=== PATIENT | female | born 1970 | race Caucasian/White ===

== ENCOUNTER → 2017-09-24 | Emergency (ER) | payer OTHER ==
[~2017-09-24] VITALS: Ht 165.1 cm; Wt 68.0 kg
[~2017-09-24] MED LIST: TAMIFLU45 MG; TUSSI PRES-B L120 M1 PO
== END | disposition home or self-care (01) ==
LOC: ER 15:39
DX: B34.9 Viral infection, unspecified (principal)

== ENCOUNTER 2021-06-05 12:16 | Emergency (ER) | payer OTHER ==
[~2021-06-05] VITALS: Ht 162.6 cm; Wt 73.9 kg
[2021-06-05] MEDS ORDERED: TIROSINT13 MCG (12:43)
== END 2021-06-05 20:51 | disposition home or self-care (01) ==
LOC: ER 12:16
DX: R10.32 Left lower quadrant pain (principal); E03.8 Other specified hypothyroidism; Z03.818 Encounter for observation for suspected exposure to other biological agents ruled out

== ENCOUNTER 2022-04-15 07:48 | Emergency (ER) | payer OTHER ==
[~2022-04-15] VITALS: Ht 162.6 cm; Wt 73.9 kg
[~2022-04-15 07:48] MED LIST changes: +TIROSINT13 MCG
[2022-04-15] MEDS ORDERED: SYNTHROID112 MCG PO (08:18)
== END 2022-04-15 09:41 | disposition home or self-care (01) ==
LOC: ER 07:48
DX: M25.519 Pain in unspecified shoulder (principal)

== ENCOUNTER 2023-05-17 14:38 | Emergency (ER) | payer OTHER ==
[~2023-05-17] VITALS: Ht 162.6 cm; Wt 73.9 kg
[~2023-05-17 14:38] MED LIST changes: +SYNTHROID112 MCG PO
[2023-05-17 17:46] LABS: HEMATOCRIT 39.8 % (36.0-45.00); HEMOGLOBIN 13.3 g/dL (12.0-15.00); MEAN CELL VOLUME 84.7 fL (80.00-100.00); MEAN CORPUSCULAR HEMOGLOBIN 28.3 pg (27.00-32.0); MEAN CORPUSCULAR HGB CONC 33.4 g/dl (32.0-36.0); PLATELET COUNT 187 K/uL (150-450); RED CELL DISTRIBUTION WIDTH 13.6 % (11.5-14.5)
== END 2023-05-17 20:24 | disposition home or self-care (01) ==
LOC: ER 14:38
PROVIDERS: General Practice
DX: R51.9 Headache, unspecified (principal); R42 Dizziness and giddiness

== ENCOUNTER 2024-10-31 15:50 | Emergency (ER) | payer OTHER ==
[~2024-10-31] VITALS: Ht 165.1 cm; Wt 69.4 kg
[2024-10-31 16:30] VITALS: BP 113/76; O2SAT 99
[2024-10-31] MEDS ORDERED: 0.9 % SODIUM CHLORIDE 1,000 ML IV STA (20:06)
[2024-10-31] MEDS ORDERED: KETOROLAC TROMETHAMINE 30 MG VIAL IV STA (20:06)
[2024-10-31] MEDS ORDERED: MORPHINE SULFATE 4 MG/ML VIAL IV STA (20:07)
[2024-10-31] MEDS ORDERED: KETOROLAC TROMETHAMINE 30 MG VIAL ONE (20:50)
[2024-10-31 20:56] LABS: HEMOGLOBIN 12.9 g/dL (12.0-15.00); MEAN CORPUSCULAR HEMOGLOBIN 28.9 pg (27.00-32.0); PLATELET COUNT 175 K/uL (150-450); RED BLOOD COUNT 4.47 M/uL (4.00-6.00); RED CELL DISTRIBUTION WIDTH 12.8 % (11.5-14.5)
[2024-10-31 21:20] LABS: INR 0.98; PROTHROMBIN TIME 10.7 SECONDS (9.0-11.5)
[2024-10-31 21:20] LABS: PH,URINE 7.5 (5.0-8.0); URINE APPEARANCE Clear; URINE BILIRRUBIN Negative (NEGATIVE); URINE BLOOD Negative; URINE COLOR Yellow; URINE GLUCOSE Negative (NEGATIVE); URINE KETONE Negative (NEGATIVE); URINE LEUKOCYTE Negative; URINE NITRATE Negative; URINE PROTEIN Negative (NEGATIVE); URINE UROBILINOGEN 0.2 E.U./dl
[2024-10-31 21:31] LABS: URINE EPITHELIAL CELLS 1.4 uL (0.0-38.8); URINE RBC 9.8 uL (0.0-20.8)
[2024-10-31 21:35] LABS: ALBUMIN 3.6 gm/dL (3.4-5.0); BILIRUBIN TOTAL 0.39 mg/dL (0.3-1.2); CREATININE SERUM 0.6 mg/dL (0.55-1.02); GFR 103.79; GLOBULINA 3.8 G/DL (2.4-3.5); POTASSIUM 4.24 mEq/L (3.5-5.1); TOTAL PROTEIN 7.4 gm/dL (6.4-8.2)
== END 2024-11-01 01:53 | disposition home or self-care (01) ==
LOC: ER 15:53
DX: K59.01 Slow transit constipation (principal); M43.10 Spondylolisthesis, site unspecified

== ENCOUNTER 2024-12-29 15:47 | Inpatient (IN) | payer OTHER ==
[~2024-12-29] VITALS: Ht 172.7 cm; Wt 74.8 kg
--- NOTE | 2024-12-29 15:56 | NUR ---
PACIENTE ALERTA Y ORIENTADA X3 TRAIDA EN AMBULANCIA. REFIERE VENIR POR DOLOR ABDOMINAL, 1 VOMITO Y 1 DIARREA. SE ESTIMAN VITALES Y SE UBICA.
[2024-12-29] MEDS ORDERED: HYOSCYAMINE SULFATE 0.125 MG TAB.SUBL SL ONE (16:30)
[2024-12-29] MEDS ORDERED: FAMOtidine 10 MG/ML (4ML VIAL) IV ONE (16:30)
[2024-12-29] MEDS ORDERED: 0.9 % SODIUM CHLORIDE 1,000 ML IV ONE (16:30)
[2024-12-29] MEDS ORDERED: ONDANSETRON HCL 2 MG/ML VIAL IV ONE (16:30)
[2024-12-29 18:38] LABS: BASO % 0.4 % (0.1-1.2); HEMATOCRIT 40.8 % (34.1-44.9); HEMOGLOBIN 13.4 g/dL (11.2-15.7); LYMPH # 1.21 (1.18-3.74); LYMPH % 17.7 % (19.3-53.1); MEAN CORPUSCULAR HEMOGLOBIN 27.6 pg (25.6-32.2); MONO # 0.43 (0.24-0.82); MONO % 6.3 % (4.7-12.5); NEUT # 5.16 (1.56-6.13); NEUT % 75.3 % (34.0-71.1); PLATELET COUNT 203 K/uL (163-369); RED BLOOD COUNT 4.85 M/uL (3.93-5.22); RED CELL DISTRIBUTION WIDTH 12.3 % (11.6-14.4)
--- NOTE | 2024-12-29 18:42 | NUR ---
SE ORIENTA SOBRE TX MEDICO Y REFIERE ACEPTAR. SE EJECUTAN ORDENES MEDICAS A ARIZMENDI TOTALIDAD.
[2024-12-29 20:51] LABS: INR 1.08; PARTIAL THROMBOPLASTIN TIME 25.6 SECONDS (22.0-34.0); PROTHROMBIN TIME 11.7 SECONDS (9.0-11.5)
[2024-12-29 20:56] LABS: ALBUMIN 3.4 gm/dL (3.4-5.0); BILIRUBIN TOTAL 2.82 mg/dL (0.3-1.2); CALCIUM 8.9 mg/dL (8.5-10.1); CREATININE SERUM 0.6 mg/dL (0.55-1.02); GFR 103.79; GLOBULINA 3.9 G/DL (2.4-3.5); POTASSIUM 4.06 mEq/L (3.5-5.1); TOTAL PROTEIN 7.3 gm/dL (6.4-8.2)
[2024-12-29 21:16] LABS: PH,URINE 7.5 (5.0-8.0); URINE APPEARANCE Clear; URINE BILIRRUBIN Negative (NEGATIVE); URINE BLOOD Negative; URINE COLOR Yellow; URINE GLUCOSE Negative (NEGATIVE); URINE LEUKOCYTE Negative; URINE NITRATE Negative; URINE PROTEIN Negative (NEGATIVE)
[2024-12-29 21:21] LABS: URINE BACTERIA 17.1 uL (0.0-1933); URINE RBC 11.4 uL (0.0-20.8)
[2024-12-29 22:14] LABS: URINE EPITHELIAL CELLS 0.9 uL (0.0-38.8); URINE KETONE 80 (NEGATIVE); URINE WBC 0.6 uL (0.0-23.2)
[2024-12-29] MEDS ORDERED: PIPERACILLIN/TAZOBACTAM SODIUM 3.375 GM VIAL IV ONE (22:30)
[2024-12-29] MEDS ORDERED: 0.9 % SODIUM CHLORIDE 1,000 ML IV SCH (23:45)
[2024-12-29] MEDS ORDERED: KETOROLAC TROMETHAMINE 30 MG VIAL IM PRN (23:45)
[2024-12-29] MEDS ORDERED: CEFTRIAXONE SODIUM 2,000 MG in 0.9 % SODIUM CHLORIDE 100 ML IV SCH (23:52)
[2024-12-30] MEDS ORDERED: METRONIDAZOLE/SODIUM CHLORIDE 100 ML IV SCH (01:00)
[2024-12-30 02:43] VITALS: BP 121/73
[2024-12-30 08:00] VITALS: BP 110/74; O2SAT 100
[2024-12-30 16:00] VITALS: BP 99/63; O2SAT 97
[2024-12-31 01:34] VITALS: BP 99/62; O2SAT 97
[2024-12-31 08:00] VITALS: BP 98/63; O2SAT 100
[2024-12-31 14:07] LABS: BASO % 0.6 % (0.1-1.2); EOS # 0.03 (0.04-0.54); EOS % 0.6 % (0.7-7.0); HEMATOCRIT 40.1 % (34.1-44.9); HEMOGLOBIN 12.8 g/dL (11.2-15.7); LYMPH # 1.96 (1.18-3.74); LYMPH % 39.8 % (19.3-53.1); MEAN CORPUSCULAR HEMOGLOBIN 27.4 pg (25.6-32.2); MONO # 0.28 (0.24-0.82); MONO % 5.7 % (4.7-12.5); NEUT # 2.61 (1.56-6.13); NEUT % 53.1 % (34.0-71.1); PLATELET COUNT 196 K/uL (163-369); RED BLOOD COUNT 4.68 M/uL (3.93-5.22); RED CELL DISTRIBUTION WIDTH 12.6 % (11.6-14.4)
[2024-12-31 15:02] LABS: ALBUMIN 3.7 gm/dL (3.4-5.0); BILIRUBIN TOTAL 0.69 mg/dL (0.3-1.2); BILIRUBIN,CONJUGATED 0.18 mg/dL (0.0-0.2); BILIRUBIN,UNCONJUGATED 0.51 mg/dL (0.0-0.6); CALCIUM 8.9 mg/dL (8.5-10.1); CREATININE SERUM 0.63 mg/dL (0.55-1.02); GFR 98.11; POTASSIUM 3.76 mEq/L (3.5-5.1); TOTAL PROTEIN 7.7 gm/dL (6.4-8.2)
[2025-01-01 00:04] VITALS: BP 120/78; O2SAT 99
[2025-01-01 08:00] VITALS: BP 120/82; O2SAT 96
[2025-01-01 16:00] VITALS: BP 112/71; O2SAT 98
[2025-01-02 01:00] VITALS: BP 109/75; O2SAT 100
[2025-01-02 08:46] VITALS: BP 110/72; O2SAT 98
[2025-01-02] MEDS ORDERED: FAMOTIDINE/PF 20 MG/2 ML VIAL IV STA (11:58)
[2025-01-02] MEDS ORDERED: PIPERACILLIN/TAZOBACTAM SODIUM 3.375 GM in DEXTROSE 5 % IN WATER 100 ML IV SCH (12:00)
[2025-01-02] MEDS ORDERED: ONDANSETRON HCL 4 MG in DEXTROSE 5 % IN WATER 50 ML IV SCH (12:00)
[2025-01-02] MEDS ORDERED: PIPERACILLIN/TAZOBACTAM SODIUM 3.375 GM VIAL IV ONE (13:39)
[2025-01-02 16:00] VITALS: BP 117/68; O2SAT 100
[2025-01-02] MEDS ORDERED: LIDOCAINE HCL 1%/EPINEPHRINE 20ML VIAL IJ ONE (18:16)
[2025-01-02] MEDS ORDERED: BUPIVACAINE HCL/MPF 0.5% 30ML VIAL ONE (18:16)
[2025-01-02] MEDS ORDERED: FAMOTIDINE/PF 20 MG/2 ML VIAL IV SCH (21:00)
[2025-01-02] MEDS ORDERED: MORPHINE SULFATE 4 MG/ML VIAL IV ONE ×2 (23:05→23:35)
[2025-01-03] MEDS ORDERED: PIPERACILLIN/TAZOBACTAM SODIUM 3.375 GM VIAL IV ONE (00:11)
[2025-01-03 03:45] VITALS: BP 134/74; O2SAT 100
[2025-01-03 08:00] VITALS: BP 123/81; O2SAT 95
[2025-01-03] MEDS ORDERED: SIMETHICONE 125 MG CAPSULE PO SCH (09:00)
[2025-01-03] MEDS ORDERED: SUCRALFATE 1 G TABLET PO SCH (09:00)
[2025-01-03] MEDS ORDERED: LACTOBACILLUS ACIDOPHILUS 1 CAP CAP PO SCH (09:00)
== END 2025-01-03 18:14 | disposition home or self-care (01) | DRG 419 ==
LOC: ER 15:47 → SURH 23:44
PROVIDERS: General Practice; Surgery; ADMIT Internal Medicine; ATTEND Internal Medicine
PROC: BW40ZZZ Ultrasonography of Abdomen (ICD-10-PCS; 2024-12-29)
PROC: BW21YZZ Computerized Tomography (CT Scan) of Abdomen and Pelvis using Other Contrast (ICD-10-PCS; 2024-12-29)
PROC: BF37ZZZ Magnetic Resonance Imaging (MRI) of Pancreas (ICD-10-PCS; 2024-12-29)
PROC: BF13YZZ Fluoroscopy of Gallbladder and Bile Ducts using Other Contrast (ICD-10-PCS; 2025-01-02)
PROC: 0FT44ZZ Resection of Gallbladder, Percutaneous Endoscopic Approach (ICD-10-PCS; principal; 2025-01-02 17:30)
DX: K80.00 Calculus of gallbladder with acute cholecystitis without obstruction (principal); E03.9 Hypothyroidism, unspecified